=== PATIENT | female | born 1995 | race Hispanic/Latino ===

== ENCOUNTER 2022-08-07 16:06 | Observation (INO) | payer MEDICAID ==
[~2022-08-07] VITALS: Ht 149.9 cm; Wt 83.6 kg
[~2022-08-07 16:06] MED LIST: PREN1COM14 PO
[2022-08-07 16:11] VITALS: BP 112/60
[2022-08-07] MEDS ORDERED: ACETAMINOPHEN 325 MG TAB PO SCH (17:30)
[2022-08-07] MEDS ORDERED: ACETAMINOPHEN 325 MG TAB ONE (17:40)
[2022-08-07 17:45] LABS: AMPHET/METH SCREEN,URINE NEGATIVE (NEGATIVE); BARBITURATE SCREEN, URINE NEGATIVE (NEGATIVE); BENZODIAZEPINES SCREEN,URINE NEGATIVE (NEGATIVE); CANNABINOID SCREEN,URINE NEGATIVE (NEGATIVE); COCAINE SCREEN,URINE NEGATIVE (NEGATIVE); PHENCYCLIDINE SCREEN,URINE NEGATIVE (NEGATIVE)
== END 2022-08-07 18:05 | disposition home or self-care (01) ==
LOC: EDH 16:06 → LDH 16:07
PROVIDERS: ADMIT Obstetrics & Gynecology; ATTEND Obstetrics & Gynecology
DX: O26.893 Other specified pregnancy related conditions, third trimester (principal); R10.9 Unspecified abdominal pain; Z3A.31 31 weeks gestation of pregnancy
CPT/HCPCS: 96360; 80305; G0378; J7120